=== PATIENT | male | born 1960 | race Caucasian/White ===

== ENCOUNTER 2018-12-25 19:37 | Emergency (ER) | payer OTHER ==
[2018-12-25] MEDS ORDERED: Ondansetron PF 4 MG/2 ML Vial ONE (20:22)
[2018-12-25] MEDS ORDERED: Morphine 4 MG/ML VIAL ONE (20:22)
[2018-12-25 20:35] LABS: #Eosinphils 0.1 thou/uL (0.0-0.7); #Lymphocytes 2.5 thou/uL (1.20-3.40); #Monocytes 1.1 thou/uL (0.11-0.59); #Neutrophils 9.8 thou/uL (1.40-6.50); %Basophils 0.2 % (0.0-1.0); %Eosinophils 1.1 % (0.0-10.0); %Lymphocytes 18.6 % (21.0-51.0); %Monocytes 7.8 % (0.0-10.0); %Neutrophils 72.4 % (42.0-75.0); Hemoglobin 14.7 g/dL (14.0-18.0); Mean Corpuscular HGB CONC 34.4 g/dL (32.0-36.0); Mean Corpuscular Hemoglobin 29.8 pg (27.0-31.0); Mean Corpuscular Volume 86.9 fL (78.0-98.0); Mean Platelet Volume 8.6 fL (7.4-10.4); Platelet Count 215 thou/uL (130-400); RBC Distribution Width 11.3 % (11.5-14.5); Red Blood Cell (RBC) Count 4.91 mill/uL (4.70-6.10); White Blood Cell (WBC) Count 13.5 thou/uL (4.8-10.8)
[2018-12-25 20:58] LABS: ALT (SGPT) 27 U/L (8-55); AST (SGOT) 21 U/L (5-34); Albumin 4.4 g/dL (3.5-5.0); Alkaline Phosphatase 49 U/L (40-150); Anion Gap 20 mmol/L (10-20); BUN (Urea Nitrogen) 14 mg/dL (8.4-25.7); Bilirubin, Total 0.6 mg/dL (0.2-1.2); Calc. Creatinine Clearance 0 mL/min (70-130); Calcium 9.8 mg/dL (7.8-10.44); Carbon Dioxide 21 mmol/L (22-29); Chloride 101 mmol/L (98-107); Estimated GFR-MDRD 69; Globulin 2.7 g/dL (2.4-3.5); Glucose 181 mg/dL (70-105); Protein, Total 7.1 g/dL (6.0-8.3); Sodium 138 mmol/L (136-145)
[2018-12-25 21:26] LABS: Lipase 8418 U/L (8-78)
--- NOTE | 2018-12-25 21:31 | CT ---
Contrast-enhanced images abdomen pelvis history: Abdominal pain Contrast-enhanced images of the abdomen pelvis obtained. The lung bases are unremarkable. No evidence of free intraperitoneal air seen. The liver, spleen, adrenal glands and kidneys are unremarkable. The pancreas demonstrates minimal fat stranding surrounding the pancreatic head possibly representing minimal changes of pancreatitis. The gallbladder is been surgically removed. No evidence of periaortic lymphadenopathy seen. No dilated loops of small bowel seen. The colon is unremarkable. No definite evidence of osseous lesion seen. IMPRESSION: Mild peripancreatic fat stranding.
== END 2018-12-25 23:42 | disposition home or self-care (01) ==
LOC: ERS 19:37
DX: K85.90 Acute pancreatitis without necrosis or infection, unspecified (principal); E11.9 Type 2 diabetes mellitus without complications; Z79.4 Long term (current) use of insulin
CPT/HCPCS: 36415; 36416; 74177; 80053; 83690; 85025; 96361; 96374; 96375; J2270; J2405

== ENCOUNTER 2019-01-16 00:27 | Inpatient (IN) | payer OTHER ==
[2019-01-16] MEDS ORDERED: Ondansetron PF 4 MG/2 ML Vial ONE (01:00)
[2019-01-16] MEDS ORDERED: Morphine 4 MG/ML VIAL ONE (01:00)
[2019-01-16 01:03] LABS: #Eosinphils 0.2 thou/uL (0.0-0.7); #Lymphocytes 2.9 thou/uL (1.20-3.40); #Monocytes 1.2 thou/uL (0.11-0.59); #Neutrophils 7.8 thou/uL (1.40-6.50); %Basophils 0.3 % (0.0-1.0); %Eosinophils 1.3 % (0.0-10.0); %Lymphocytes 24.2 % (21.0-51.0); %Monocytes 9.6 % (0.0-10.0); %Neutrophils 64.6 % (42.0-75.0); Hemoglobin 14.3 g/dL (14.0-18.0); Mean Corpuscular HGB CONC 35.6 g/dL (32.0-36.0); Mean Corpuscular Hemoglobin 30.8 pg (27.0-31.0); Mean Corpuscular Volume 86.6 fL (78.0-98.0); Mean Platelet Volume 8.6 fL (7.4-10.4); Platelet Count 220 thou/uL (130-400); RBC Distribution Width 11.7 % (11.5-14.5); Red Blood Cell (RBC) Count 4.65 mill/uL (4.70-6.10); White Blood Cell (WBC) Count 12.1 thou/uL (4.8-10.8)
[2019-01-16 01:28] LABS: ALT (SGPT) 45 U/L (8-55); AST (SGOT) 39 U/L (5-34); Albumin 4.3 g/dL (3.5-5.0); Alkaline Phosphatase 62 U/L (40-150); Anion Gap 14 mmol/L (10-20); BUN (Urea Nitrogen) 17 mg/dL (8.4-25.7); Bilirubin, Total 0.5 mg/dL (0.2-1.2); Calc. Creatinine Clearance 0 mL/min (70-130); Calcium 9.7 mg/dL (7.8-10.44); Carbon Dioxide 23 mmol/L (22-29); Chloride 103 mmol/L (98-107); Estimated GFR-MDRD 72; Globulin 2.7 g/dL (2.4-3.5); Glucose 198 mg/dL (70-105); Potassium 3.5 mmol/L (3.5-5.1); Sodium 136 mmol/L (136-145)
[2019-01-16 01:54] LABS: Lipase 12014 U/L (8-78)
[2019-01-16 02:43] LABS: Bilirubin Negative (Negative); Blood, Urine Negative (Negative); Clarity CLEAR (Clear); Glucose, Urine (Dipstick) 500 mg/dL (Negative); Leukocyte Negative (Negative); Nitrite Negative (Negative); Protein, Urine (Dipstick) Negative (Neg-Trace); Specific Gravity, Urine 1.028 (1.002-1.036)
[2019-01-16] MEDS ORDERED: Ondansetron ODT 4 MG TAB SL PRN (03:02)
[2019-01-16] MEDS ORDERED: Ondansetron PF 4 MG/2 ML Vial IVP PRN ×2 (03:02→08:56)
[2019-01-16] MEDS: Sodium Chloride 0.9% 1,000 ML IV SCH ×6 (03:41→22:30)
[2019-01-16 03:46] VITALS: BMI 24.2
[2019-01-16 05:03] LABS: Lactic Acid 0.8 mmol/L (0.5-2.2)
[2019-01-16] MEDS: Morphine 4 MG/ML VIAL SLOW IVP PRN ×2 (05:09→09:03)
[2019-01-16] MEDS ORDERED: Acetaminophen 325 MG TAB PO PRN (08:56)
[2019-01-16] MEDS ORDERED: Bisacodyl 5 MG TAB PO PRN (08:56)
[2019-01-16] MEDS ORDERED: Senokot S 8.6-50 MG TAB PO PRN (08:56)
[2019-01-16] MEDS ORDERED: Morphine 4 MG/ML VIAL SLOW IVP PRN (08:57)
[2019-01-16] MEDS: Famotidine/PF 20 mg/2ml Vial SLOW IVP SCH ×2 (09:39→20:49)
[2019-01-16] MEDS: Enoxaparin Sodium 40 MG/0.4 ML SYRINGE SC SCH (09:39)
--- NOTE | 2019-01-16 14:19 | ULT ---
GALLBLADDER ULTRASOUND: HISTORY:Recurrent pancreatitis FINDINGS: The liver demonstrates homogeneous echotexture without focal mass or intrahepatic biliary ductal dila tation. The patient is post cholecystectomy. The right kidney and visualized portions of the pancreas are normal. The common duct measures 5mm in diameter. The pancreatic duct measures 4 mm in diameter. No free fluid is seen in the Hutton's pouch. IMPRESSION: 1. Status post post cholecystectomy without abnormal biliary ductal dilatation 2. Mildly dilated pancreatic duct.
[2019-01-16] MEDS ORDERED: Dextrose 50% Abboject 50 ML SYRINGE SLOW IVP PRN (15:37)
[2019-01-16] MEDS ORDERED: HumaLOG 300 UNITS/3 ML VIAL SC PRN (15:37)
[2019-01-16] MEDS ORDERED: Dextrose 5% in Water 1,000 ML IV PRN (15:37)
[2019-01-16 16:12] LABS: Hemoglobin A1c 8.6 % (4.0-6.0)
[2019-01-16] MEDS ORDERED: Promethazine HCl 25 MG/ML VIAL IM/IV PRN (17:18)
--- NOTE | 2019-01-16 22:16 | HP ---
CHIEF COMPLAINT: Abdominal pain, nausea and vomiting. HISTORY OF PRESENT ILLNESS: The patient is a 58-year-old male with a history of recurrent pancreatitis, who presents to the hospital with complaints of right upper quadrant epigastric abdominal pain, nausea and vomiting. The patient stated that he came in to the hospital last month with similar symptoms. At that time, he did have a CT of abdomen and pelvis, which was consistent with mild peripancreatic fat stranding consistent with pancreatitis. However, patient was reluctant to stay since he started feeling well after some hydration and some pain medication and he was able to tolerate oral liquids, so he was discharged home. The patient stated that he is not a heavy drinker and he had his gallbladder removed. The patient stated that his first 2 episodes were back in 2008 I believe and in 2010. He did not have any episodes for 6 years and then had 2 [id number], which was the one last month and one yesterday. The patient stated he has had a total of five episodes of pancreatitis. He states that he has had an upper endoscopy and a colonoscopy a few years back or maybe longer, and he was told everything was okay. The patient is due for a colonoscopy recently. The patient denies taking any new medications except for the [id number] medications that he takes. The patient also states that his hemoglobin A1c is 9.1, and he was on insulin before; however, currently he is not on anything. He has been trying to manage his sugars with exercise, diet and cutting down on his sweets. However, the patient states that for the past few days he has been eating out quite a bit and has been eating some spicy foods and also foods that he normally would not eat. PAST MEDICAL HISTORY: As of the following: He has a history of recurrent pancreatitis, most likely diabetes. PAST SURGICAL HISTORY: He has had a colonoscopy, laparoscopic cholecystectomy in 2010. FAMILY HISTORY: Unremarkable. No history of cancer. Mother has diabetes, which is controlled through diet. 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 Denies any alcohol use. He does not smoke and he lives with his family and he is a full code. REVIEW OF SYSTEMS: All negative except for the ones mentioned above in the HPI. PHYSICAL EXAMINATION: VITAL SIGNS: As of the following; temperature 98.2, 67, 16, 97% on room air 138/80. GENERAL: He is awake, alert, oriented, and does not appear in distress. CV: S1, S2 present. No murmurs, rubs, or gallops. HEENT: Normocephalic, atraumatic. No lymphadenopathy noted. LUNG: Clear to auscultation. No rhonchi or wheezes noted. ABDOMEN: Soft, bowel sounds present x2. Pain upon palpation around epigastric area. NEUROVASCULAR: No focal deficits noted. SKIN: No cuts, lesions, bruises noted. LABORATORY RESULTS: As of the following; WBCs of 12.1, hemoglobin of 14.3, hematocrit of 40.3, his platelets were 220. Chemistry, sodium of 132, potassium of 3.5, glucose of 198, BUN of 17, creatinine 1.06. His lactic acid was 3.0. His lipase was 12,000. AST was mildly elevated at 39. Urine just indicated some glucose and some ketones. ASSESSMENT AND PLAN: The patient is a very pleasant 58-year-old male who presents to the hospital with abdominal pain. 1. Acute pancreatitis, unclear etiology. The patient has never had any trauma. He does not drink. He does not have a gallbladder. I will get a right upper quadrant ultrasound just to make sure there is no choledocholithiasis. Also, I am not sure, if he has ever had any workup in terms of his recurrent pancreatitis. According to him, he did have an EGD and colonoscopy. However, after that, no other workup. He is not on any prescription medications, he takes a lot of vitamins. His recent new vitamin was zinc, which I am not sure if it could possibly exacerbate pancreatitis. The patient does not feel that he is very much stressed. I will go ahead and order a right upper quadrant ultrasound. I will also consult GI since this is his 5th time getting pancreatitis. The patient states that he feels well and he wants to try clear liquids. I will start him on clear liquids and I have instructed him that, if he starts having abdominal pain or nausea to stop. I will continue the IV hydration and I will also check an ESR, CRP on this patient. 2. Diabetes. The patient states his hemoglobin A1c was 9 and his sugars have been elevated. I will check on hemoglobin A1c. I did instruct the patient that he needs to be on insulin, especially with a hemoglobin A1c of 9. He has a high risk for microvascular disease. The patient does understand and we will check a Accu-Cheks on this patient also. Job ID: [id number]
[2019-01-17] MEDS: Sodium Chloride 0.9% 1,000 ML IV SCH (05:15)
[2019-01-17 06:51] LABS: #Eosinphils 0.2 thou/uL (0.0-0.7); #Lymphocytes 1.6 thou/uL (1.20-3.40); #Monocytes 0.6 thou/uL (0.11-0.59); #Neutrophils 5.8 thou/uL (1.40-6.50); %Basophils 0.6 % (0.0-1.0); %Eosinophils 2.3 % (0.0-10.0); %Lymphocytes 19.7 % (21.0-51.0); %Neutrophils 70.5 % (42.0-75.0); Hemoglobin 12.3 g/dL (14.0-18.0); Mean Corpuscular HGB CONC 34.3 g/dL (32.0-36.0); Mean Corpuscular Hemoglobin 30.6 pg (27.0-31.0); Mean Corpuscular Volume 89.3 fL (78.0-98.0); Mean Platelet Volume 9.6 fL (7.4-10.4); Platelet Count 173 thou/uL (130-400); RBC Distribution Width 11.7 % (11.5-14.5); Red Blood Cell (RBC) Count 4.03 mill/uL (4.70-6.10); White Blood Cell (WBC) Count 8.3 thou/uL (4.8-10.8)
[2019-01-17 07:25] LABS: BUN (Urea Nitrogen) 7 mg/dL (8.4-25.7); Calc. Creatinine Clearance 103 mL/min (70-130); Calcium 8.1 mg/dL (7.8-10.44); Carbon Dioxide 27 mmol/L (22-29); Chloride 108 mmol/L (98-107); Estimated GFR-MDRD Greater than 90; Glucose 82 mg/dL (70-105); Sodium 139 mmol/L (136-145)
[2019-01-17 07:32] LABS: Anion Gap 8 mmol/L (10-20)
[2019-01-17] MEDS: Famotidine/PF 20 mg/2ml Vial SLOW IVP SCH (09:52)
[2019-01-17] MEDS: Enoxaparin Sodium 40 MG/0.4 ML SYRINGE SC SCH (09:52)
[2019-01-17 16:09] VITALS: BP 118/78; TEMP 97.8
== END 2019-01-17 16:55 | disposition home or self-care (01) | DRG 440 ==
LOC: ERS 00:27 → SURG B 02:57
PROVIDERS: ADMIT Internal Medicine; ATTEND Internal Medicine
DX: K85.90 Acute pancreatitis without necrosis or infection, unspecified (principal); E11.9 Type 2 diabetes mellitus without complications; Z90.49 Acquired absence of other specified parts of digestive tract; Z79.4 Long term (current) use of insulin
CPT/HCPCS: 36415; 36416; 76705; 80048; 80053; 81003; 83036; 83605; 83690; 84478; 85025; 85652; 86140; 87040; 96361; 96374; 96375; J1650; J2270; J2405; J2550; S0028

== ENCOUNTER 2019-02-08 16:04 | Inpatient (IN) | payer OTHER ==
[~2019-02-08 16:04] MED LIST: ISOVUE-370 76%-LOCM 1 ML ONE
[2019-02-08 16:27] LABS: #Basophils 0.1 thou/uL (0.0-0.2); #Eosinphils 0.2 thou/uL (0.0-0.7); #Lymphocytes 4.9 thou/uL (1.20-3.40); #Monocytes 0.8 thou/uL (0.11-0.59); #Neutrophils 5.1 thou/uL (1.40-6.50); %Basophils 0.6 % (0.0-1.0); %Eosinophils 1.4 % (0.0-10.0); %Lymphocytes 44.3 % (21.0-51.0); %Neutrophils 46.8 % (42.0-75.0); Hemoglobin 14.6 g/dL (14.0-18.0); Mean Corpuscular HGB CONC 33.8 g/dL (32.0-36.0); Mean Corpuscular Hemoglobin 29.6 pg (27.0-31.0); Mean Corpuscular Volume 87.6 fL (78.0-98.0); Mean Platelet Volume 8.4 fL (7.4-10.4); Platelet Count 256 thou/uL (130-400); RBC Distribution Width 11.9 % (11.5-14.5); Red Blood Cell (RBC) Count 4.94 mill/uL (4.70-6.10)
[2019-02-08] MEDS ORDERED: Morphine 4 MG/ML VIAL ONE ×2 (16:35→18:23)
[2019-02-08] MEDS ORDERED: Ondansetron PF 4 MG/2 ML Vial ONE (16:36)
[2019-02-08 16:51] LABS: ALT (SGPT) 31 U/L (8-55); AST (SGOT) 18 U/L (5-34); Albumin 4.3 g/dL (3.5-5.0); Alkaline Phosphatase 50 U/L (40-150); Anion Gap 18 mmol/L (10-20); BUN (Urea Nitrogen) 12 mg/dL (8.4-25.7); Bilirubin, Total 0.9 mg/dL (0.2-1.2); Calc. Creatinine Clearance 0 mL/min (70-130); Calcium 9.6 mg/dL (7.8-10.44); Carbon Dioxide 21 mmol/L (22-29); Chloride 102 mmol/L (98-107); Estimated GFR-MDRD 70; Globulin 2.6 g/dL (2.4-3.5); Glucose 171 mg/dL (70-105); Potassium 3.3 mmol/L (3.5-5.1); Protein, Total 6.9 g/dL (6.0-8.3); Sodium 138 mmol/L (136-145)
[2019-02-08 17:18] LABS: Lipase 15163 U/L (8-78)
[2019-02-08] MEDS ORDERED: Sodium Chloride 0.9% 100 ML ONE (17:33)
[2019-02-08] MEDS ORDERED: Piperacillin/Tazobactam 4.5 GM VIAL ONE (17:33)
--- NOTE | 2019-02-08 17:48 | CT ---
EXAM: CT ABDOMEN AND PELVIS HISTORY: Diffuse abdominal pain. Pancreatitis flareup. COMPARISON: None. Procedure: Multiple contiguous axial images were obtained and a CT of the abdomen and pelvis with IV contrast. C oronal reformats were performed. FINDINGS: Lower Chest: within normal limits. Vessels: Normal caliber aorta Heart: Unremarkable Abdomen: Portal vein:Patent Gallbladder: Surgically absent Liver: within normal limits. Pancreas: Slightly heterogeneous enhancement secondary to infection/inflammation (pancreatitis). Ther e is peripancreatic fluid and fat stranding secondary to an infectious/inflammatory process. No evidence of a peripancreatic abscess or pseudocyst. Spleen: within normal limits. Adrenals: within normal limits. Kidneys: Symmetric enhancement. No obstructive uropathy Peritoneum: There is extensive peripancreatic fluid and stranding. Bowel: Bowel wall thickening without obstruction involving the duodenum, adjacent to the inflamed coelho creas. Additional reactive inflammatory changes involve the splenic flexure. Mesentery and Retroperitoneum: No enlarged mesenteric or retroperitoneal lymph nodes. Abdominal Wall: within normal limits. Pelvis: Reproductive Organs: No pelvic masses. Pelvis: within normal limits. Bladder: within normal limits. Bones: within normal limits. IMPRESSION: 1. Pancreatitis. There are inflammatory changes in the peripancreatic region. No evidence of an absce ss or pseudocyst. 2. Reactive changes in the adjacent alimentary canal.
[2019-02-08] MEDS ORDERED: Promethazine HCl 25 MG/ML VIAL ONE ×2 (18:11→18:12)
[2019-02-08 19:06] LABS: Bilirubin Negative (Negative); Blood, Urine Negative (Negative); Clarity Clear (Clear); Glucose, Urine (Dipstick) Normal (Negative); Leukocyte Negative Leu/uL (Negative); Nitrite Negative (Negative); Protein, Urine (Dipstick) Negative (Neg-Trace); Urobilinogen Normal mg/dL (Less than 2)
[2019-02-08] MEDS ORDERED: Senokot S 8.6-50 MG TAB PO PRN (19:12)
[2019-02-08] MEDS ORDERED: Morphine 4 MG/ML VIAL SLOW IVP PRN (19:14)
[2019-02-08] MEDS ORDERED: Ondansetron PF 4 MG/2 ML Vial IVP PRN (19:15)
[2019-02-08 20:22] VITALS: BMI 23.8
[2019-02-08] MEDS: Morphine 4 MG/ML VIAL SLOW IVP PRN (20:32)
[2019-02-08] MEDS: Sodium Chloride 0.9% 1,000 ML IV SCH (20:45)
[2019-02-09] MEDS: Morphine 4 MG/ML VIAL SLOW IVP PRN ×4 (01:23→16:14)
--- NOTE | 2019-02-09 01:43 | HP ---
PCP: Angie Sherman MD CHIEF COMPLAINT: Abdominal pain, nausea, vomiting. HISTORY OF PRESENT ILLNESS: The patient reports abdominal pain, nausea, dry heaves since about 4 o'clock. Reports that he has had several episodes of pancreatitis, 2 in the last 3 months and felt like he might be getting recurrence of same. While in the emergency room, CT scan was performed which showed a slightly heterogeneous enhancement secondary to infection and inflammation, pancreatitis, peripancreatic fluid, and fat stranding secondary to infectious and inflammatory process and no evidence of abscess or pseudocyst. The patient also has lipase of 15,163. He is also found to be a little hypokalemic, potassium at 3.3, and white blood cell count at 11. Glucose was 171. The patient reports that he has been diagnosed with diabetes but is preferring to treat with diet and exercise. He reports that he has lost about 30 pounds in the last 6 months and felt like he had a better diet and was exercising 3 times a week and is unsure of what exactly triggered his pancreatitis at this point. The patient will be admitted to the medical floor for further management. PAST MEDICAL HISTORY: Recurrent pancreatitis and diabetes. PAST SURGICAL HISTORY: Colonoscopy over 10 years ago, laparoscopic cholecystectomy in 2010. FAMILY HISTORY: No history of cancer. Mother had diabetes, controlled through diet. 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 Denies any alcohol use. Does not smoke. Lives with his family. REVIEW OF SYSTEMS: Negative except as mentioned in the HPI. PHYSICAL EXAMINATION: VITAL SIGNS: Blood pressure 137/86, pulse is 78, respirations 20, PO2 sats are 100% on room air. GENERAL: The patient is nontoxic appearing, is in mild pain distress. He is alert and oriented to person, place, and time. HEENT: Head is atraumatic and normocephalic. Eyes, eyelids are normal to inspection. Pupils are equally round and reactive to light. ENT, mouth exam is normal. Mucous membranes are moist. NECK: Normal range of motion. Trachea is midline. RESPIRATORY/CHEST: Equal chest expansion. Breath sounds are clear. CARDIOVASCULAR: S1, S2. ABDOMEN: Tender, mostly epigastric, painful to epigastric region on palpation. No tenderness elsewhere. There is no rebound or guarding. BACK: Normal range of motion. No CVA tenderness. EXTREMITIES: Upper extremity; inspection is normal, range of motion is normal, radial pulses equal bilaterally. Lower extremity; inspection is normal, range of motion is normal, motor strength normal, pedal pulses equal bilaterally. NEUROLOGIC: The patient is oriented to person, place, and time. Speech is normal. SKIN: Warm, dry, normal in color. PSYCHIATRIC: Normal affect. IMAGING: EKG in the emergency room shows beats per minute 73 with PVCs, incomplete right bundle branch block, has a left anterior fascicular block, nonspecific EKG. ASSESSMENT AND PLAN: 1. Acute pancreatitis, this is a third episode. He has had gallbladder removed. Sugar was 178 today. I will keep him n.p.o. tonight. Advance to clear liquids in the morning, IV fluids, pain medications, and start him on a low Protonix. 2. Diabetes. The patient currently is trying to resolve his high sugars, he says he takes it every day and runs anywhere from 95 to 200. He exercises 3 times a week and watches his diet and has lost 30 pounds in the last 6 months. His A1c when he was here in 01/16/2019 was 8.6. The patient reports there was an improvement from the 9.1 that he previously had. We will add Accu-Cheks before breakfast and at bedtime sliding scale insulin for coverage. 3. Case discussed with Dr. Moncada, who agrees with the plan. 4. Deep venous thrombosis and gastrointestinal prophylaxis have been started. 5. Hospital course dependent on clinical findings. Job ID: [id number]
[2019-02-09] MEDS: Sodium Chloride 0.9% 1,000 ML IV SCH ×3 (05:26→21:20)
[2019-02-09 06:28] LABS: #Eosinphils 0.1 thou/uL (0.0-0.7); #Lymphocytes 1.4 thou/uL (1.20-3.40); #Monocytes 0.7 thou/uL (0.11-0.59); %Basophils 0.4 % (0.0-1.0); %Eosinophils 0.6 % (0.0-10.0); %Lymphocytes 13.5 % (21.0-51.0); %Monocytes 6.7 % (0.0-10.0); %Neutrophils 78.8 % (42.0-75.0); Hemoglobin 14.1 g/dL (14.0-18.0); Mean Corpuscular HGB CONC 33.6 g/dL (32.0-36.0); Mean Corpuscular Hemoglobin 30.1 pg (27.0-31.0); Mean Corpuscular Volume 89.5 fL (78.0-98.0); Mean Platelet Volume 8.8 fL (7.4-10.4); Platelet Count 205 thou/uL (130-400); RBC Distribution Width 12.1 % (11.5-14.5); Red Blood Cell (RBC) Count 4.69 mill/uL (4.70-6.10); White Blood Cell (WBC) Count 10.2 thou/uL (4.8-10.8)
[2019-02-09 06:54] LABS: ALT (SGPT) 23 U/L (8-55); AST (SGOT) 16 U/L (5-34); Albumin 3.6 g/dL (3.5-5.0); Alkaline Phosphatase 42 U/L (40-150); Anion Gap 11 mmol/L (10-20); BUN (Urea Nitrogen) 10 mg/dL (8.4-25.7); Bilirubin, Total 0.7 mg/dL (0.2-1.2); Calc. Creatinine Clearance 80 mL/min (70-130); Calcium 8.6 mg/dL (7.8-10.44); Carbon Dioxide 26 mmol/L (22-29); Chloride 106 mmol/L (98-107); Estimated GFR-MDRD 81; Globulin 2.2 g/dL (2.4-3.5); Glucose 183 mg/dL (70-105); Potassium 4.2 mmol/L (3.5-5.1); Protein, Total 5.8 g/dL (6.0-8.3); Sodium 139 mmol/L (136-145)
[2019-02-09] MEDS: Enoxaparin Sodium 40 MG/0.4 ML SYRINGE SC SCH (08:35)
[2019-02-09] MEDS ORDERED: Dextrose 50% Abboject 50 ML SYRINGE SLOW IVP PRN (08:59)
[2019-02-09] MEDS ORDERED: Dextrose 5% in Water 1,000 ML IV PRN (08:59)
[2019-02-09] MEDS ORDERED: Insulin Regular 300 UNITS/3 ML VIAL SC PRN ×2 (08:59)
[2019-02-09 09:18] LABS: Hemoglobin A1c 7.9 % (4.0-6.0)
[2019-02-09] MEDS ORDERED: HYDROcodone/Acetaminophen 5/325 mg Tablet PO PRN (10:39)
[2019-02-09] MEDS ORDERED: Morphine 2 MG/ML SYRINGE SLOW IVP PRN (11:00)
--- NOTE | 2019-02-09 11:01 | PRG ---
DATE OF SERVICE: 02/09/2019 SUBJECTIVE: A 58-year-old male with recurrent pancreatitis, presented to the emergency room with abdominal pain, nausea, and vomiting. His last vomiting was last night. His workup was consistent with acute pancreatitis with lipase of 15,163. He continues to have mild intermittent abdominal pain. He is somewhat nauseous, however denies any vomiting. No bowel movements in the hospital. No chest pain, palpitations, fever, or chills reported. REVIEW OF SYSTEMS: All other review of systems reviewed and were found negative. PHYSICAL EXAMINATION: VITAL SIGNS: Temperature 97.8, pulse rate of 73, respiration of 18, blood pressure 149/77, and O2 saturation of 97% on room air. GENERAL: A 58-year-old male, in no apparent distress at this time. HEENT: Head, atraumatic and normocephalic. Sclerae anicteric. Moist mucous membranes. No oral lesion. NECK: Supple. No JVD appreciated. No carotid bruit. LUNGS: Clear to auscultation bilaterally. No wheezing, rales, or rhonchi. HEART: S1 and S2 present. Regular rate and rhythm. No rubs or gallops. ABDOMEN: Soft. Mild generalized tenderness, mainly in the periumbilical region. No rebound or guarding. No costovertebral angle tenderness. EXTREMITIES: No edema or calf tenderness. NEUROLOGY: Grossly nonfocal. PSYCHIATRY: Alert, awake, and oriented x3. Normal affect. LABORATORY FINDINGS: WBC down to 10.2, hemoglobin 14.1, and potassium 4.2. Lipase of 3647. Hemoglobin A1c, which was done per the patient's request was 7.9. CT scan of the abdomen and pelvis by my review showed changes consistent with acute pancreatitis without any evidence of abscess or pseudocyst. There were reactive changes in the alimentary canal. IMPRESSION: 1. Acute pancreatitis of unclear etiology. 2. History of recurrent pancreatitis. 3. Diabetes mellitus type 2, diet controlled. 4. Erectile dysfunction, on p.r.n. tadalafil. 5. Hypokalemia, replaced. 6. Chronic kidney disease, stage 2. 7. History of laparoscopic cholecystectomy in 2010. 8. Nausea, vomiting, and abdominal pain secondary to #1. PLAN: The etiology of acute pancreatitis is unclear at this time. He was recently admitted with the same reason. We will increase IV fluids to 125. We will change his diet to n.p.o. from clear liquid diet. Continue Lovenox for DVT prophylaxis. His triglyceride was recently done, which was 159. He does not take any medicine that would cause pancreatitis. He denies any [id number] supplements. We will recheck lipase and electrolytes in a.m. We will consult Gastroenterology due to recurrent pancreatitis. He is scheduled to see Dr. Yeh as outpatient next month. Plan was discussed with the patient in detail. He stated understanding. Job ID: [id number]
--- NOTE | 2019-02-09 21:58 | CON ---
DATE OF CONSULTATION: 02/09/2019 REQUESTING PHYSICIAN: Dr. Ng. REASON FOR CONSULTATION: Recurrent pancreatitis. 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 He has a history of diabetes, which is currently diet controlled as well as some mild chronic kidney disease. He has had multiple episodes of acute pancreatitis through the years and has been seen by my GI colleague, Dr. Kip Yeh. His first episode was in September 2008. Following that episode, he had an endoscopic ultrasound with Dr. Kellogg in [place] and this evidently did show changes of chronic pancreatitis. He underwent cholecystectomy in 2010. He did have another attack in February 2013, but did well for the past 6 years since then. However, he has now had mild recurrent episodes on December 25 and January 17 of this year requiring ER visit and brief hospitalization. Then, yesterday, he again had a fairly acute onset of epigastric constant pain as well as nausea and nonbloody emesis, and presented here for further evaluation. He was found to have lipase elevation up to 15,163 with normal LFTs and labs otherwise essentially unremarkable. With IV fluid resuscitation and pain control, he has done pretty well today. The nausea has resolved, but epigastric pain persists and he is still requiring morphine. Lipase has fallen to 3647. He has remained hemodynamically stable. He is frustrated with having three recurrent attacks over the past several weeks. He does not drink any alcohol. Note, his triglycerides have always been fairly unremarkable except for his very initial episode in September 2008. He has no family history of pancreatitis. REVIEW OF SYSTEMS: Full review of systems including constitutional, head, eyes, ears, nose, throat, GI, , cardiovascular, respiratory, musculoskeletal, and neurologic systems is negative except as noted in the HPI. PAST MEDICAL HISTORY: 1. Diabetes type 2, diet controlled. 2. Erectile dysfunction. 3. Chronic kidney disease. 4. Cholecystectomy, 2010. 5. Recurrent acute pancreatitis with episodes in September 2008, August 2010, February 2013, and now December, January and February of 2019. 6. Chronic pancreatitis changes evidently seen on prior EUS, 2008. ALLERGIES: NO KNOWN DRUG ALLERGIES. MEDICATIONS: Outpatient medications; Tadalafil, daily multivitamin, Unisom. Inpatient medications; Lovenox 40 mg subcu daily, insulin sliding scale, morphine 4 mg IV q.4 hours p.r.n., Zofran p.r.n., sodium chloride 125 mL/h. FAMILY HISTORY: Negative for pancreatitis. SOCIAL HISTORY: He has not had any alcohol since 2012. He does not smoke. PHYSICAL EXAMINATION: VITAL SIGNS: Temperature 98.0, pulse 89, blood pressure 130/76, 96% oxygen saturation on room air. GENERAL: A 58-year-old man, sitting up in bed comfortably, in mild distress from abdominal pain. SKIN: No jaundice. No rashes were palpable. EYES: No scleral icterus. Extraocular movements intact. ENT: Mucous membranes moist. No oral lesions. LYMPH: No submandibular or supraclavicular lymphadenopathy. Thyroid nontender to palpation. HEART: Regular rate and rhythm. LUNGS: Clear to auscultation bilaterally. ABDOMEN: Bowel sounds are hypoactive, but present. The abdomen is soft. Tender to palpation in the epigastrium, but no guarding or rebound tenderness. No masses or organomegaly appreciated. EXTREMITIES: No peripheral edema. VESSELS: Radial pulses 2+ bilaterally. NEUROLOGIC: Cranial nerves 2 through 12 intact bilaterally. No focal deficits. LABORATORY STUDIES: Hemoglobin 14.1, WBC 10.2, platelets 205. Sodium 139, potassium 4.2, BUN 10, creatinine 0.95, glucose 189. Hemoglobin A1c is 7.9. Lipase initially 15,163, now down to 3647. LFTs all normal with total bilirubin 0.7, alkaline phosphatase 42, AST 16, ALT 23, albumin 3.6. Urinalysis is negative. IMAGING STUDIES: CT of the abdomen from yesterday demonstrated absent gallbladder and changes consistent with pancreatitis with peripancreatic fluid and stranding. No evidence of any abscess or pseudocyst. The spleen is normal. ASSESSMENT AND PLAN: Recurrent acute pancreatitis. With regard to this acute attack, lab and clinical parameters are favorable. CT does not show any complicated disease such as pseudocyst or fluid collection. Lipase is trending down and there has been no interval elevation in hematocrit, which gives a good prognosis for this current attack. Continue with supportive care as you are doing. We would continue the IV fluids and pain control as needed. I would keep him n.p.o. for the remainder of the day. If his pain requirements have lessened by tomorrow and he is feeling better and hungry, then could start slowly advancing his diet tomorrow morning. With regard to these recurrent attacks at this point, the cause is idiopathic. Note, the fairly extensive workup that he had in the past including genetic testing for familial pancreatitis, triglycerides only mildly elevated on multiple prior attacks. He is status post cholecystectomy and LFTs remained normal, so I doubt any biliary cause. He does not drink alcohol. He has not had any endoscopic ultrasound for the past 10 years, and especially with so many recent attacks, I think repeat referral for endoscopic ultrasound would be appropriate. We will go ahead and start working on endoscopic ultrasound referral. Thank you for the consultation. Please call me at anytime with questions or concerns. Job ID: [id number]
[2019-02-10] MEDS: Morphine 4 MG/ML VIAL SLOW IVP PRN (01:22)
[2019-02-10] MEDS ORDERED: Acetaminophen 325 MG TAB PO PRN (01:35)
[2019-02-10] MEDS: Acetaminophen 325 MG TAB PO PRN ×3 (01:47→15:43)
[2019-02-10] MEDS: Sodium Chloride 0.9% 1,000 ML IV SCH (05:59)
[2019-02-10 06:27] LABS: ALT (SGPT) 16 U/L (8-55); AST (SGOT) 11 U/L (5-34); Albumin 3.1 g/dL (3.5-5.0); Alkaline Phosphatase 35 U/L (40-150); Anion Gap 11 mmol/L (10-20); BUN (Urea Nitrogen) 8 mg/dL (8.4-25.7); Bilirubin, Total 1.4 mg/dL (0.2-1.2); Calc. Creatinine Clearance 100 mL/min (70-130); Calcium 7.8 mg/dL (7.8-10.44); Carbon Dioxide 25 mmol/L (22-29); Chloride 105 mmol/L (98-107); Estimated GFR-MDRD Greater than 90; Globulin 1.9 g/dL (2.4-3.5); Glucose 74 mg/dL (70-105); Magnesium 1.7 mg/dL (1.6-2.6); Phosphorus 2.9 mg/dL (2.3-4.7); Potassium 3.5 mmol/L (3.5-5.1); Sodium 137 mmol/L (136-145)
[2019-02-10 06:35] LABS: Lipase 1078 U/L (8-78)
[2019-02-10] MEDS ORDERED: Dextrose 50% Abboject 50 ML SYRINGE SLOW IVP SCH (07:45)
[2019-02-10 08:11] VITALS: BP 115/74
[2019-02-10] MEDS: Enoxaparin Sodium 40 MG/0.4 ML SYRINGE SC SCH (08:14)
[2019-02-10] MEDS ORDERED: Sodium Chloride 0.9% 1,000 ML IV SCH (11:11)
[2019-02-10 11:58] VITALS: TEMP 98.1
--- NOTE | 2019-02-10 13:11 | PRG ---
DATE OF SERVICE: SUBJECTIVE: Mr. Barcenas is feeling pretty well. He has not had any further morphine today. Abdominal discomfort is minimal. There is no nausea. He is tolerating clear liquids this morning. He feels a little bit bloated, but he is having good bowel sounds and passing gas. PHYSICAL EXAMINATION: VITAL SIGNS: Temperature 98.1, pulse 64, blood pressure 115/74, and 97% oxygen saturation on room air. GENERAL: No acute distress. HEART: Regular rate and rhythm. LUNGS: Clear to auscultation bilaterally. ABDOMEN: Soft. Minimal tenderness to palpation in the epigastrium, but no guarding or rebound tenderness. Mild distention. Tympanitic to percussion. Bowel sounds positive in all 4 quadrants. EXTREMITIES: No peripheral edema. LABORATORY STUDIES: Sodium 137, potassium 3.5, BUN 8, creatinine 0.76, total bilirubin 1.4, alkaline phosphatase 35, AST 11, ALT 16, amylase 844, lipase down to 1078. Hemoglobin 14.1, WBC 10.2, and platelets 205. ASSESSMENT AND PLAN: 1. Recurrent acute pancreatitis, resolving. 2. Abdominal pain, improved. 3. Nausea, resolved. I am pleased with Mr. Barcenas's clinical progress over the past day. He has not required any further narcotics today and is tolerating clear liquids. This morning, he is eager to go home if possible. I advised that we can advance to a low-fat solid food diet this evening at dinner. If he does well with this, then I think he could potentially be discharged to home even this evening. I did encourage him to stick with a low-carbohydrate, low-fat diet, and to let us know if symptoms escalate again. 4. Our office will be working on referral for endoscopic ultrasound within the next few weeks and will give him a call for those arrangements. We will also have him follow up with Dr. Yeh in the outpatient setting. Job ID: [id number]
--- NOTE | 2019-02-10 18:29 | DIS ---
DATE OF ADMISSION: 02/08/2019 DATE OF DISCHARGE: 02/10/2019 DISCHARGE DISPOSITION: Home. FOLLOWUP: 1. Follow up with primary care physician, Dr. Sherman in 1 week. 2. Follow up with Gastroenterology Clinic with Dr. Yeh. 3. An outpatient endoscopic ultrasound will be arranged by Dr. Yeh's office. The patient was seen and examined on the day of discharge. Denies any new complaints. No chest pain, shortness of breath, or palpitations. SIGNIFICANT LABS: Lipase on admission 15,163; at discharge 1078. Amylase on the day of discharge is 844. Total bilirubin 1.4 with AST 11, ALT 16, and alkaline phosphatase 35. WBC 10.2. Urinalysis was negative. IMAGING STUDIES: CT scan of the abdomen and pelvis on admission was consistent with acute pancreatitis without any evidence of abscess or pseudocyst. There were reactive changes in the adjacent alimentary canal. BRIEF HOSPITAL COURSE: The patient is a 58-year-old male with recurrent pancreatitis, presented to the emergency room with abdominal pain, nausea, and vomiting. Please refer to the history and physical for further details. The patient was admitted to the hospital with a diagnosis of acute pancreatitis. He was kept n.p.o. and was started on IV fluids. His pain was controlled with IV narcotics. Gradually, his symptoms improved. This afternoon, he tolerated clear liquid diet. He also tolerated low-fat diet this evening. The patient was evaluated by Gastroenterology Service, Dr. Luis León. Dr. León recommended endoscopic ultrasound as an outpatient. He was advised to stay with low-carbohydrate and low-fat diet. He has been cleared by Gastroenterology for discharge. FINAL DIAGNOSES: 1. Acute pancreatitis of unclear etiology. 2. History of recurrent pancreatitis. 3. Diabetes mellitus, type 2. 4. Hypokalemia, replaced. 5. Erectile dysfunction. 6. Chronic kidney disease, stage 2. 7. Nausea, vomiting, and abdominal pain, secondary to acute pancreatitis. 8. History of laparoscopic cholecystectomy in 2010. PLAN: 1. Plan was discussed with the patient in detail. He stated understanding. 2. Repeat lipase and LFTs after 1 week as recommended. 3. Primary care physician advised to follow. Job ID: [id number]
== END 2019-02-10 19:21 | disposition home or self-care (01) | DRG 440 ==
LOC: ERS 16:04 → ONC 18:26
PROVIDERS: ADMIT Internal Medicine; ATTEND Internal Medicine
DX: K85.90 Acute pancreatitis without necrosis or infection, unspecified (principal); E11.22 Type 2 diabetes mellitus with diabetic chronic kidney disease; N18.2 Chronic kidney disease, stage 2 (mild); E87.6 Hypokalemia; N52.9 Male erectile dysfunction, unspecified; Z90.49 Acquired absence of other specified parts of digestive tract
CPT/HCPCS: 36415; 36416; 74177; 80053; 81003; 82150; 83036; 83690; 83735; 84100; 85025; J1650; J1815; J2270; J2405; J2543; J2550; J3490; Q9966

== ENCOUNTER 2019-03-06 12:58 | Inpatient (IN) | payer OTHER ==
[2019-03-06] MEDS ORDERED: Ondansetron PF 4 MG/2 ML Vial ONE (13:26)
[2019-03-06 13:31] LABS: #Basophils 0.1 thou/uL (0.0-0.2); #Eosinphils 0.2 thou/uL (0.0-0.7); #Lymphocytes 3.7 thou/uL (1.20-3.40); #Monocytes 0.7 thou/uL (0.11-0.59); #Neutrophils 5.7 thou/uL (1.40-6.50); %Basophils 0.8 % (0.0-1.0); %Eosinophils 1.6 % (0.0-10.0); %Lymphocytes 35.8 % (21.0-51.0); %Monocytes 6.5 % (0.0-10.0); %Neutrophils 55.4 % (42.0-75.0); Hemoglobin 14.8 g/dL (14.0-18.0); Mean Corpuscular HGB CONC 34.2 g/dL (32.0-36.0); Mean Corpuscular Hemoglobin 29.7 pg (27.0-31.0); Mean Corpuscular Volume 86.7 fL (78.0-98.0); Mean Platelet Volume 8.6 fL (7.4-10.4); Platelet Count 254 thou/uL (130-400); RBC Distribution Width 12.3 % (11.5-14.5); Red Blood Cell (RBC) Count 4.98 mill/uL (4.70-6.10); White Blood Cell (WBC) Count 10.3 thou/uL (4.8-10.8)
[2019-03-06 13:54] LABS: ALT (SGPT) 30 U/L (8-55); AST (SGOT) 19 U/L (5-34); Albumin 4.5 g/dL (3.5-5.0); Alkaline Phosphatase 59 U/L (40-150); Anion Gap 15 mmol/L (10-20); BUN (Urea Nitrogen) 17 mg/dL (8.4-25.7); Bilirubin, Total 0.8 mg/dL (0.2-1.2); Calc. Creatinine Clearance 0 mL/min (70-130); Calcium 10.3 mg/dL (7.8-10.44); Carbon Dioxide 27 mmol/L (22-29); Chloride 101 mmol/L (98-107); Estimated GFR-MDRD 71; Globulin 2.9 g/dL (2.4-3.5); Glucose 214 mg/dL (70-105); Potassium 3.6 mmol/L (3.5-5.1); Protein, Total 7.4 g/dL (6.0-8.3); Sodium 139 mmol/L (136-145)
[2019-03-06] MEDS ORDERED: Fentanyl 100 MCG/2 ML VIAL ONE (14:00)
[2019-03-06 14:32] LABS: Lipase 8647 U/L (8-78)
[2019-03-06] MEDS ORDERED: Morphine 4 MG/ML VIAL ONE (15:56)
--- NOTE | 2019-03-06 16:09 | HP ---
PRIMARY CARE PHYSICIAN: Angie Sherman MD REASON FOR ADMISSION: Acute pancreatitis. HISTORY OF PRESENT ILLNESS: A 58-year-old male who has recurrent pancreatitis history. He had first episode of pancreatitis in 2008 and subsequently in 2010 and then third episode was in 2012. After that, he did not have any episode up until 2018 and since December, he had total of 4 episodes of pancreatitis. He required total 2 and this time third admission for pancreatitis in the recent past. The patient already had endoscopic ultrasound in [place], and he had result followup with Dr. Yeh early this morning. As per that report and result, Dr. Yeh decided that this patient will need an endoscopic sphincterotomy in [place], and the patient has made appointment in [place] in March 19, 2019. The patient also had routine followup with Dr. Yeh earlier today because he is due for his colonoscopy, and the patient made appointment for colonoscopy in April. After that visit, the patient was having acute onset of epigastric abdominal pain. The patient was knowing that he is hitting his pancreatitis as he had similar type of symptoms in the past. At this time, he caught very early, and he came to emergency room. At Dr. Yeh's office, he was also vomiting. Normally whenever he gets mild pancreatitis after vomiting, he feels better, and he watched over his diet, and he tried to manage by himself at home, but this time, the pain was persistent and that is why he decided to go to emergency room. In the emergency room, all other blood tests were normal except elevated lipase. The patient has history of diabetes, and he is trying to control with diet and exercise. In the past, he was on insulin, but lately, he was not on any insulin , and the patient also noticed that his blood sugar is getting high lately. PAST MEDICAL HISTORY: Diabetes type 2 and recurrent pancreatitis. PAST SURGICAL HISTORY: Biceps repair in 2014, cholecystectomy, and colonoscopy. PAST PSYCHIATRIC HISTORY: Reviewed and negative. SOCIAL HISTORY: The patient is , lives at home with . No history of tobacco, alcohol, or illicit drug abuse. FAMILY HISTORY: No family history of coronary artery disease, stroke, or cancer. Diabetes runs among several family members. REVIEW OF SYSTEMS: CONSTITUTIONAL: Negative for weight loss or gain, ability to conduct usual activities. SKIN: Negative for rash, itching. EYES: Negative for double vision, pain. ENT/MOUTH: Negative for nose bleeding, neck stiffness, pain, tenderness. CARDIOVASCULAR: Negative for palpitations, dyspnea on exertion, orthopnea. RESPIRATORY: Negative for shortness of breath, wheezing, cough, hemoptysis, fever or night sweats. GASTROINTESTINAL: Negative for poor appetite, abdominal pain, heartburn, nausea , vomiting, constipation, or diarrhea. GENITOURINARY: Negative for urgency, frequency, dysuria, nocturia. MUSCULOSKELETAL: Negative for pain, swelling. NEUROLOGIC/PSYCHIATRIC: Negative for anxiety, depression. ALLERGY/IMMUNOLOGIC: Negative for skin rash, bleeding tendency. Please see my HPI for pertinent positives and negatives. All other review of systems reviewed and negative except as mentioned in HPI. EMERGENCY ROOM COURSE: The patient has received fentanyl, Zofran, and IV fluid. ALLERGY: No known drug allergy. PHYSICAL EXAMINATION: VITAL SIGNS: Currently, blood pressure 155/85, pulse 88, respiratory rate 22, temperature 97.5, and saturation is 100% on room air. Weight 68 kg. GENERAL: The patient is currently alert and awake, no obvious acute distress. HEENT: Head; normocephalic, atraumatic. Eyes; pupils round, reactive to light. Extraocular muscle intact. ENT, oropharynx within normal limits. Moist mucous membranes. No oral lesion. No pharyngeal erythema. No exudate. NECK: Supple. No JVD. No thyromegaly. No carotid bruit. No jugular venous distention. LUNGS: Clear to auscultation without any rhonchi or rales. CARDIAC: S1, S2. Regular without any murmur. No gallop. No rub. ABDOMEN: Soft. Epigastric tenderness. No rebound. No organomegaly. No mass. No suprapubic tenderness. BACK: Unremarkable. No CVA tenderness. UPPER EXTREMITIES: Passive movement of all joints are normal. LOWER EXTREMITIES: No edema. Good distal pulsation. SKIN: No skin rash. HEMATOLOGICAL SYSTEM: No lymphadenopathy. NEUROLOGIC: Nonfocal examination. SIGNIFICANT LABORATORY DATA: CBC; WBC 10.3, hemoglobin 14.8, and platelets 254. BMP; sodium 139, potassium 3.6, chloride 101, carbon dioxide 27, BUN 17, creatinine 1.07, glucose 214, calcium 10.3. LFT; AST 19, ALT 30, alkaline phosphatase 59, albumin 4.5, and lipase 8647. ASSESSMENT: 1. Acute and recurrent pancreatitis. 2. Diabetes type 2, likely secondary to recurrent pancreatitis. PLAN: 1. Admission to medical floor. N.p.o. except medication. Pain control with morphine p.r.n. basis. Gastroenterology consultation. The patient already has planned for endoscopic sphincterotomy at [place]. We will repeat labs tomorrow , and we will advance diet accordingly. 2. Deep venous thrombosis prophylaxis with Lovenox 40 mg subcu daily. GI prophylaxis with Protonix 40 mg IV daily. CODE STATUS: The patient is full code. The patient's is surrogate decision maker. DISPOSITION PLAN: Based on clinical course, we are expecting the patient's stay in hospital 24 to 48 hours. Plan of care discussed with the patient and family member at bedside in the emergency room. Job ID: [id number] MTDD
[2019-03-06] MEDS ORDERED: Labetalol HCl 100 MG/20 ML VIAL SLOW IVP PRN (16:33)
[2019-03-06] MEDS ORDERED: Ondansetron PF 4 MG/2 ML Vial IVP PRN (16:33)
[2019-03-06] MEDS ORDERED: Acetaminophen 325 MG TAB PO PRN (16:33)
[2019-03-06] MEDS ORDERED: Sodium Chloride 0.65% Nasal 44 ML BOT EA NARE PRN (16:33)
[2019-03-06] MEDS ORDERED: Benzonatate 100 MG CAP PO PRN (16:33)
[2019-03-06] MEDS ORDERED: Dextrose 50% Abboject 50 ML SYRINGE SLOW IVP PRN (16:33)
[2019-03-06] MEDS ORDERED: Zolpidem Tartrate 5 MG TAB PO PRN (16:33)
[2019-03-06] MEDS ORDERED: HumaLOG 300 UNITS/3 ML VIAL SC PRN ×2 (16:33)
[2019-03-06] MEDS ORDERED: Diabetic Tussin 200 MG/10 ML UDCUP PO PRN (16:33)
[2019-03-06] MEDS ORDERED: Bisacodyl 10 MG SUPP PR PRN (16:33)
[2019-03-06] MEDS ORDERED: Calcium Carbonate 500 MG ChewTAB PO PRN (16:33)
[2019-03-06] MEDS ORDERED: hydrALAZINE 20 MG/ML VIAL SLOW IVP PRN (16:33)
[2019-03-06] MEDS ORDERED: Dextrose 5% in Water 1,000 ML IV PRN (16:33)
[2019-03-06] MEDS ORDERED: Ondansetron ODT 4 MG TAB PO PRN (16:33)
[2019-03-06] MEDS ORDERED: Sodium Chloride 0.9% 1,000 ML IV SCH (16:33)
[2019-03-06] MEDS ORDERED: Loratadine 10 MG TAB PO PRN (16:33)
[2019-03-06] MEDS ORDERED: Loperamide HCl 2 MG CAP PO PRN (16:33)
[2019-03-06] MEDS ORDERED: Senokot S 8.6-50 MG TAB PO PRN (16:33)
[2019-03-06] MEDS ORDERED: HYDROcodone/Acetaminophen 5/325 mg Tablet PO PRN (16:33)
[2019-03-06 16:59] VITALS: BMI 24.1
[2019-03-06] MEDS: Morphine 4 MG/ML VIAL SLOW IVP PRN ×2 (17:13→21:18)
[2019-03-06] MEDS: Sodium Chloride 0.9% 1,000 ML IV SCH (21:15)
--- NOTE | 2019-03-07 01:47 | CON ---
DATE OF CONSULTATION: 03/06/2019 REASON FOR CONSULTATION: Acute recurrent pancreatitis. CONSULTING PHYSICIAN: Racquel Obregon MD HISTORY OF PRESENT ILLNESS: The patient is a 58-year-old male with past medical history of diabetes and recurrent pancreatitis, presenting with increased midepigastric abdominal pain. Upon chart review, the patient has had recurrent bouts of pancreatitis, initially starting in 2008 with repeat episodes in 2010 and 2012. However, over the last 3-4 months, he has had approximately 3 to 4 episodes of pancreatitis with multiple hospitalizations during this time. He was evaluated in an outpatient setting by Dr. Yeh for which the patient was ultimately transferred to [place] for further evaluation by Dr. Borrego with endoscopic ultrasound performed recently. After the endoscopic ultrasound, he was in his usual state of health and was actually followed up by Dr. Yeh earlier today with no significant problems seen during the clinic visit this morning. However, shortly after the clinic visit, he states that he progressively had increased midepigastric abdominal pain starting at 11:00 a.m. and worsening over the next few hours, characterized as a "hunger pain", was nonradiating, constant, and ultimately reached a severity of 7/10 to 8/10. The pain was worse with increased physical activity/movement, better with pressure to the region and vomiting. With the onset of this pain, it was very similar to the prior bouts of pancreatitis he has had from earlier this year and given the fact that the patient waited to be seen in the hospital resulting in prolonged amounts of pain, it then prompted him to come to the ER early for further evaluation. While in the ER, he was noted to have increased midepigastric abdominal pain on physical exam, but also noted to have a significantly elevated lipase level consistent with acute recurrent pancreatitis. Along with his midepigastric abdominal pain, he does endorse nausea and vomiting with nonbloody emesis. However, he does deny fevers, chills, hematemesis, melena, hematochezia, diarrhea, constipation, dysphagia, or odynophagia. REVIEW OF SYSTEMS: A 10-category review of systems was obtained with all responses negative except for the pertinent positives as listed in HPI. PAST MEDICAL HISTORY: As per HPI. PAST SURGICAL HISTORY: Cholecystectomy, biceps repair in 2014, colonoscopy, endoscopic ultrasound. FAMILY HISTORY: Denies any GI malignancies. SOCIAL HISTORY: Denies any tobacco, alcohol, or illicit drug use. OUTPATIENT MEDICATIONS: Reviewed. ALLERGIES: NO KNOWN DRUG ALLERGIES. PHYSICAL EXAMINATION: VITAL SIGNS: Temperature 97.6, pulse 57, blood pressure 152/76, respiratory rate 20, saturating 100% on room air. GENERAL: The patient is sitting in a chair at bedside, in no acute distress. Alert and oriented x4. HEENT: Normocephalic, atraumatic. No scleral icterus noted. NECK: Supple. No JVD. CARDIOVASCULAR: Regular rate and rhythm with no discernible murmurs, gallops, or rubs. RESPIRATORY: Clear to auscultation bilaterally with no discernible wheezes or rales. ABDOMEN: Hypoactive bowel sounds. Soft, nondistended. Tenderness to palpation primarily in the midepigastric and right upper quadrant. EXTREMITIES: No cyanosis, clubbing, or edema. LABORATORY DATA: CBC with a white blood cell count of 10.3, hemoglobin 14.8, hematocrit 43.2, platelets 254. Chemistry with a sodium of 139, potassium 3.6, chloride 101, CO2 of 27, BUN 17, creatinine 1.07, glucose 214, AST 19, ALT 30, alkaline phosphatase 59, total bilirubin 0.8, lipase 8647. IMAGING DATA: No current GI imaging is available for review. ASSESSMENT AND PLAN: The patient is a 58-year-old male with past medical history of diabetes and recurrent pancreatitis, presenting with a bout of acute recurrent pancreatitis. Acute recurrent pancreatitis. The patient is presenting with sudden onset of midepigastric abdominal pain that is nonradiating, characterized as a "hunger pain" and very similar to the pain that he has felt in the past with prior bouts of pancreatitis. On admission, he was noted to have a significantly elevated lipase, also confirming this diagnosis. He has been evaluated as an outpatient for this particular condition, for the number of recurrent bouts of pancreatitis with a recent endoscopic ultrasound showing a cyst within the pancreas. Per Dr. Borrego's evaluation, it appears to be a possible intraductal papillary mucinous neoplasm with recommendations for a followup ERCP and possible sphincterotomy. EUS also showed mild changes of chronic pancreatitis with calcifications within the pancreas. At this time, his symptoms are consistent with recurrent acute pancreatitis and currently does not meet criteria for a complicated pancreatitis based on other labs. RECOMMENDATIONS: 1. We would continue n.p.o. status for now and advance diet as tolerated probably starting tomorrow morning. 2. We would increase IV fluid administration to 200 mL/h over the next 16 hours then decrease to 150 mL over the next 8 hours for fluid resuscitation associated with pancreatitis. 3. Pain control per primary team. 4. Given the mild nature of his acute pancreatitis, could potentially expedite his diet tomorrow with discharge either tomorrow or the day after. 5. We would consider a repeat CT of the abdomen and pelvis if not responding to the above therapies for complications associated with recurrent pancreatitis. We will continue to follow. Please call with any questions. Job ID: [id number]
[2019-03-07] MEDS: Morphine 4 MG/ML VIAL SLOW IVP PRN ×2 (03:45→08:54)
[2019-03-07] MEDS: Sodium Chloride 0.9% 1,000 ML IV SCH ×4 (03:50→18:37)
[2019-03-07 05:42] LABS: #Eosinphils 0.2 thou/uL (0.0-0.7); #Lymphocytes 2.2 thou/uL (1.20-3.40); #Monocytes 0.6 thou/uL (0.11-0.59); #Neutrophils 5.5 thou/uL (1.40-6.50); %Basophils 0.4 % (0.0-1.0); %Eosinophils 2.5 % (0.0-10.0); %Lymphocytes 25.7 % (21.0-51.0); %Monocytes 7.2 % (0.0-10.0); %Neutrophils 64.2 % (42.0-75.0); Hemoglobin 12.4 g/dL (14.0-18.0); Mean Corpuscular HGB CONC 34.2 g/dL (32.0-36.0); Mean Corpuscular Hemoglobin 30.4 pg (27.0-31.0); Mean Corpuscular Volume 88.9 fL (78.0-98.0); Mean Platelet Volume 8.8 fL (7.4-10.4); Platelet Count 194 thou/uL (130-400); RBC Distribution Width 12.1 % (11.5-14.5); Red Blood Cell (RBC) Count 4.09 mill/uL (4.70-6.10); White Blood Cell (WBC) Count 8.5 thou/uL (4.8-10.8)
[2019-03-07 05:55] LABS: Hemoglobin A1c 7.4 % (4.0-6.0)
[2019-03-07 06:21] LABS: ALT (SGPT) 24 U/L (8-55); AST (SGOT) 19 U/L (5-34); Albumin 3.5 g/dL (3.5-5.0); Alkaline Phosphatase 41 U/L (40-150); Anion Gap 9 mmol/L (10-20); BUN (Urea Nitrogen) 12 mg/dL (8.4-25.7); CRP (Inflammatory) 0.87 mg/dL (= or < 0.5); Calc. Creatinine Clearance 95 mL/min (70-130); Calcium 8.4 mg/dL (7.8-10.44); Carbon Dioxide 28 mmol/L (22-29); Cardiac Risk 3.2 (Less than 4.5); Chloride 108 mmol/L (98-107); Cholesterol 89 mg/dl (< 200 Desired); Estimated GFR-MDRD Greater than 90; Globulin 2.1 g/dL (2.4-3.5); Glucose 113 mg/dL (70-105); HDL Cholesterol 28 mg/dL (>60 Neg Risk); LDL Cholesterol, Calculated 40 mg/dL; Magnesium 1.8 mg/dL (1.6-2.6); Phosphorus 3.6 mg/dL (2.3-4.7); Potassium 4.4 mmol/L (3.5-5.1); Protein, Total 5.6 g/dL (6.0-8.3); Sodium 141 mmol/L (136-145); Triglycerides 107 mg/dL (Less than 150)
[2019-03-07 06:23] LABS: Lipase 3082 U/L (8-78)
[2019-03-07] MEDS: Pantoprazole 40 MG VIAL IVP SCH (08:57)
[2019-03-07] MEDS: Enoxaparin Sodium 40 MG/0.4 ML SYRINGE SC SCH (09:02)
--- NOTE | 2019-03-07 13:05 | PDOC.HOSPP ---
- Subjective Subjective: pt has less epigastric pain, no nausea or vomiting - Objective Vital Signs & Weight: Vital Signs (12 hours) Temp Pulse Resp BP Pulse Ox 03/07/19 12:00 97.6 F 56 L 18 137/75 99 03/07/19 08:00 97.9 F 69 16 112/73 97 03/07/19 04:00 97.8 F 86 16 120/78 98 Weight Weight 149 lb 7.574 oz I&O: 03/06/19 03/07/19 03/08/19 06:59 06:59 06:59 Intake Total 2400 Balance 2400 Result Diagrams: 03/07/19 05:13 03/07/19 05:13 Additional Labs: Accuchecks 03/07/19 03/07/19 03/06/19 11:25 05:14 21:05 POC Glucose 99 109 141 H 03/06/19 16:56 POC Glucose 198 H ROS - Review of Systems All systems: All other ROS were reviewed and found negative. Constitutional: denies: fever, chills, sweats, weakness, malaise, other Eyes: denies: pain, vision change, conjunctivae inflammation, eyelid inflammation, redness, other ENT: denies: ear pain, ear discharge, nose pain, nose discharge, nose congestion , mouth pain, mouth swelling, throat pain, throat swelling, other Respiratory: denies: cough, dry, shortness of breath, hemoptysis, SOB with excertion, pleuritic pain, sputum, wheezing, other Cardiovascular: denies: chest pain, palpitations, orthopnea, paroxysmal noc. dyspnea, edema, light headedness, other Gastrointestinal: reports: abdominal pain. denies: nausea, vomitting, diarrhea , constipation, melena, hematochezia, other Genitourinary: denies: dysuria, frequency, incontinence, hematuria, retention, other Musculoskeletal: denies: neck pain, shoulder pain, arm pain, back pain, hand pain, leg pain, foot pain, other Skin: denies: rash, lesions, ángel, bruising, other - Medication Medications: Active Medications Generic Name Dose Route Start Last Admin Trade Name Freq PRN Reason Stop Dose Admin Enoxaparin Sodium 40 mg 03/07/19 09:00 03/07/19 09:02 Lovenox SC Not Given 0900 IRVING Sodium Chloride 1,000 mls @ 125 mls/hr 03/07/19 09:15 03/07/19 09:41 Normal Saline 0.9% IV Not Given .Q8H [facility] Insulin Human Lispro 0 units 03/06/19 16:33 03/06/19 17:14 Humalog SC 2 units .MODERATE SLIDING SC PRN Administration Moderate Correctional Scale Morphine Sulfate 4 mg 03/06/19 16:33 03/07/19 08:54 Morphine SLOW IVP 4 mg Q4H PRN Administration Pain Pantoprazole Sodium 40 mg 03/07/19 09:00 03/07/19 08:57 Protonix IVP 40 mg DAILY IRVING Administration - Exam NAD, awake alert Eye: PERRL, anicteric sclera ENT: normocephalic atraumatic, no oropharyngeal lesions Neck: supple, symmetric, no JVD Heart: RRR, no murmur, no gallops, no rubs Respiratory: CTAB, no wheezes, no rales, no ronchi Gastrointestinal: soft, non-distended, normal bowel sounds (mild epigastric tenderness), tender to palpation (epigastric) Extremities: no cyanosis, no clubbing, no edema Skin: normal turgor, no lesions, no rashes Neurological: CN's grossly intact, normal sensation to touch, no focal deficits Musculoskeletal: normal tone, normal strength Psychiatric: normal affect, normal behavior, A&O x 3 Hosp A/P (1) Diabetes type 2, controlled Code(s): E11.9 - TYPE 2 DIABETES MELLITUS WITHOUT COMPLICATIONS Status: Chronic (2) Acute pancreatitis Code(s): K85.90 - ACUTE PANCREATITIS WITHOUT NECROSIS OR INFECTION, UNSP Status: Acute - Plan old records reviewed/req lipase improving clinically improving GI following advance diet as tolerated, will defer to GI medication reviewed as below symptomatic treatment
--- NOTE | 2019-03-07 16:12 | PRG ---
DATE OF SERVICE: 03/07/2019 REASON FOR CONSULTATION: Acute recurrent pancreatitis. SUBJECTIVE: The patient did have a bit of a restless night last night, being unable to sleep with the increased noise associated with hospital, but otherwise states that his abdominal pain is improved and has minimal abdominal pain at this time. We did start him on clear liquids this morning, but unfortunately he vomited the clear liquids shortly after ingestion. It is unclear if this was associated with increased morphine administration prior to eating breakfast or whether or not this was a reaction to the food, but otherwise the patient is doing well. Currently, he denies any nausea, vomiting, fevers, chills, hematemesis, melena, or hematochezia. OBJECTIVE: VITAL SIGNS: Temperature 97.6, pulse 56, blood pressure 137/75, respiratory rate 18, saturating 99% on room air. GENERAL: The patient is lying in bed, in no acute distress. Alert and oriented x4. CARDIOVASCULAR: Regular rate and rhythm. RESPIRATORY: Clear to auscultation bilaterally. ABDOMEN: Normoactive bowel sounds. Soft, nondistended. Tenderness to palpation in the midepigastric and left upper quadrant. EXTREMITIES: No cyanosis, clubbing, or edema. LABORATORY DATA: CBC with a white blood cell count of 8.5, hemoglobin 12.4, hematocrit 36.4, platelets 194. Chemistry with a sodium of 141, potassium 4.4, chloride 108, CO2 of 28, BUN 12, creatinine 0.81, glucose 113, triglycerides 107. IMAGING DATA: No current GI imaging is available for review. ASSESSMENT AND PLAN: The patient is a 58-year-old male with past medical history of diabetes and recurrent pancreatitis, presenting with a bout of acute recurrent pancreatitis. 1. Acute recurrent pancreatitis. a. The patient is presenting with acute onset of midepigastric abdominal pain consistent with prior bouts of pancreatitis, currently doing well with more conservative management at this time with his current clinical picture consistent with an uncomplicated acute pancreatitis. RECOMMENDATIONS: 1. We would advance diet to full liquid diet in the hopes that he would tolerate it. If he has increased abdominal pain, we would then decrease back to a clear liquid diet. 2. We would continue fluid resuscitation at 150 mL/h for the next 4 hours, then decrease to 100 mL/h. 3. Pain control per Primary Team. 4. We would consider repeat CT scan of the abdomen and pelvis if not responding to above therapies. 5. We would continue to advance diet as tolerated with possible discharge tomorrow. We will continue to follow. Please call with any questions. Job ID: [id number]
[2019-03-07 20:39] VITALS: TEMP 98.3
[2019-03-08] MEDS: Sodium Chloride 0.9% 1,000 ML IV SCH ×2 (00:28→08:10)
[2019-03-08] MEDS: Enoxaparin Sodium 40 MG/0.4 ML SYRINGE SC SCH (06:41)
[2019-03-08 07:23] VITALS: BP 137/75
[2019-03-08] MEDS: Pantoprazole 40 MG VIAL IVP SCH (08:10)
--- NOTE | 2019-03-08 14:08 | DIS ---
DATE OF ADMISSION: 03/06/2019 DATE OF DISCHARGE: 03/08/2019 PRIMARY CARE PHYSICIAN: Dr. Angie Sherman. DISCHARGE DISPOSITION: Home. PRIMARY DISCHARGE DIAGNOSIS: Acute pancreatitis. SECONDARY DISCHARGE DIAGNOSIS: Diabetes type 2, diet controlled. PRIMARY PROCEDURE/OPERATION: None. RADIOLOGICAL INVESTIGATION: None. SIGNIFICANT LABORATORY DATA: WBC 8.5, hemoglobin 12.4, and platelets 194. Lipase 310, sodium 141. Hemoglobin A1c 7.4. LFT normal. DISCHARGE MEDICATIONS: None. CONTRAINDICATION: None. CODE STATUS: Full code. INPATIENT PRACTICE MANAGERS: Dr. Srinivas Rivers. TEST RESULTS PENDING ON DISCHARGE: None. ALLERGIES: NO KNOWN DRUG ALLERGIES. DISCHARGE PLAN: Posthospital, the patient will follow up with Dr. Yeh as instructed. HOSPITAL COURSE: A 58-year-old male, who has recurrent pancreatitis, and he was admitted for episode of pancreatitis. He was having epigastric abdominal pain, which was radiating to back. He has classic presentation of acute pancreatitis. This patient had endoscopic ultrasound done, and based on that, Dr. Yeh recommended him to go to [place] for a sphincterotomy to be performed at higher level of care. The patient also scheduled for outpatient colonoscopy for his routine maintenance colonoscopy. During this admission, we treated him in standard fashion for acute pancreatitis with n.p.o., IV fluid, and pain controlled. His symptoms significantly improved, and we started liquid diet and full liquid and solid food, and he is tolerating very well. His lipase is also trending down, and his pain is completely subsided. I have seen and examined the patient at bedside today. PHYSICAL EXAMINATION: VITAL SIGNS: Currently, temperature 98.3, pulse 71, respiratory rate 16, saturation 94% on room air, blood pressure 137/75, and weight 149 pounds. GENERAL: The patient is currently alert, awake, in no obvious acute distress. HEENT: Head, normocephalic and atraumatic. LUNGS: Clear to auscultation without any rhonchi or rales. CARDIAC: S1 and S2, regular without any murmur. ABDOMEN: Soft and benign. EXTREMITIES: No edema. NEUROLOGIC: Nonfocal examination. Overall, the patient is medically stable for discharge. Job ID: [id number]
== END 2019-03-08 13:58 | disposition home or self-care (01) | DRG 440 ==
LOC: ERS 12:58 → T4-A 14:46
PROVIDERS: ADMIT Internal Medicine; ATTEND Internal Medicine
DX: K85.90 Acute pancreatitis without necrosis or infection, unspecified (principal); E11.9 Type 2 diabetes mellitus without complications; K86.1 Other chronic pancreatitis; Z90.49 Acquired absence of other specified parts of digestive tract; Z87.19 Personal history of other diseases of the digestive system
CPT/HCPCS: 36415; 36416; 80053; 80061; 83036; 83690; 83735; 84100; 85025; 86140; 96361; 96374; 96375; C9113; J1650; J2270; J2405; J3010

== ENCOUNTER 2019-04-01 10:02 | Outpatient (CLI) | payer OTHER ==
--- NOTE | 2019-04-01 13:12 | RAD ---
KUB: HISTORY: Abdominal pain, intermittent pancreatitis. FINDINGS: The bowel gas pattern is nonobstructive. There is a thin catheter which may represent a stent which could possibly be within the common duct region. Clinical correlation is recommended. Surgical clip in the right upper quadrant is compatible with a cholecystectomy. IMPRESSION: 1. Nonobstructed bowel gas pattern. 2. Thin caliber tube which may represent a stent within the right upper quadrant of the abdomen. Th ere are postop cholecystectomy changes seen. POS: TPC
== END 2019-04-01 10:03 | disposition home or self-care (01) ==
LOC: BICRAD 10:02
PROVIDERS: ATTEND Internal Medicine Gastroenterology
DX: K85.90 Acute pancreatitis without necrosis or infection, unspecified (principal); Z90.49 Acquired absence of other specified parts of digestive tract
CPT/HCPCS: 74018

== ENCOUNTER 2019-04-21 12:25 | Outpatient (CLI) | payer OTHER ==
--- NOTE | 2019-04-21 13:35 | RAD ---
SUPINE ABDOMEN: Date: 04/21/19 INDICATION: Pancreatitis. Assess for stent passage. COMPARISON: 04/01/19. Prior exam revealed a radiopaque catheter or stent in the right upper quadrant. FINDINGS/IMPRESSION: On today's exam, post cholecystectomy clips are noted. There is stool and gas throughout the colon. S mall bowel gas pattern unremarkable. The radiopaque stent noted overlying the right upper quadrant on the prior exam is not identified on the current study. POS: OFF
== END 2019-04-21 12:26 | disposition home or self-care (01) ==
LOC: BICRAD 12:25
PROVIDERS: ATTEND Internal Medicine
DX: K86.1 Other chronic pancreatitis (principal); R19.5 Other fecal abnormalities; Z90.49 Acquired absence of other specified parts of digestive tract
CPT/HCPCS: 74018

== ENCOUNTER 2022-06-18 19:53 | Inpatient (IN) | payer BC, OTHER ==
[~2022-06-18 19:53] MED LIST changes: -ISOVUE-370 76%-LOCM 1 ML ONE; +Iopamidol 370 76% 100 ML VIAL ONE
[2022-06-18 20:31] LABS: #Eosinphils 0.3 thou/uL (0.0-0.7); #Lymphocytes 2.7 thou/uL (1.20-3.40); #Monocytes 0.7 thou/uL (0.11-0.59); #Neutrophils 6.4 thou/uL (1.40-6.50); %Basophils 0.4 % (0.0-1.0); %Eosinophils 2.7 % (0.0-10.0); %Lymphocytes 26.4 % (21.0-51.0); %Monocytes 7.2 % (0.0-10.0); %Neutrophils 63.2 % (42.0-75.0); Hemoglobin 15.3 g/dL (14.0-18.0); Mean Corpuscular Hemoglobin 30.7 pg (27.0-31.0); Mean Corpuscular Volume 87.8 fl (78.0-98.0); Mean Platelet Volume 8.4 fL (7.4-10.4); Platelet Count 255 10x3/uL (130-400); RBC Distribution Width 11.7 % (11.5-14.5); Red Blood Cell (RBC) Count 4.99 mill/uL (4.70-6.10); White Blood Cell (WBC) Count 10.2 10x3/uL (4.8-10.8)
[2022-06-18 20:48] LABS: ALT (SGPT) 18 U/L (8-55); AST (SGOT) 13 U/L (5-34); Albumin 4.2 g/dL (3.4-4.8); Alkaline Phosphatase 63 U/L (40-110); Anion Gap 16 mmol/L (10-20); BUN (Urea Nitrogen) 15 mg/dL (8.4-25.7); Calc. Creatinine Clearance 0 mL/min (70-130); Calcium 9.2 mg/dL (7.8-10.44); Carbon Dioxide 23 mmol/L (23-31); Chloride 102 mmol/L (98-107); Estimated GFR 89; Globulin 3.2 g/dL (2.4-3.5); Glucose 207 mg/dL (80-115); Potassium 4.6 mmol/L (3.5-5.1); Protein, Total 7.4 g/dL (5.8-8.1); Sodium 136 mmol/L (136-145)
[2022-06-18] MEDS ORDERED: Morphine 4 MG/ML VIAL ONE (20:58)
[2022-06-18] MEDS ORDERED: Ondansetron PF 4 MG/2 ML Vial ONE (20:58)
[2022-06-18 21:01] LABS: Lipase 4759 U/L (8-78)
[2022-06-18] MEDS ORDERED: Metoclopramide HCl 10 MG/2 ML VIAL ONE (22:11)
[2022-06-18] MEDS ORDERED: diphenhydrAMINE 50 MG/ML VIAL ONE (22:11)
[2022-06-18] MEDS ORDERED: Ondansetron PF 4 MG/2 ML Vial IVP PRN (23:45)
[2022-06-18] MEDS ORDERED: Sodium Chloride 0.9% 1,000 ML IV SCH (23:45)
[2022-06-18] MEDS ORDERED: Ondansetron ODT 4 MG TAB SL PRN (23:45)
[2022-06-18] MEDS ORDERED: Morphine 4 MG/ML VIAL SLOW IVP PRN (23:49)
[2022-06-19 00:47] VITALS: BMI 24.0
[2022-06-19] MEDS ORDERED: Sodium Chloride 0.9% 1,000 ML IV SCH (02:18)
[2022-06-19] MEDS: Sodium Chloride 0.9% 1,000 ML IV SCH ×6 (02:33→21:57)
[2022-06-19] MEDS ORDERED: Dextrose 5% in Water 1,000 ML IV PRN (02:34)
[2022-06-19] MEDS ORDERED: Dextrose 50% Abboject 50 ML SYRINGE SLOW IVP PRN (02:34)
[2022-06-19] MEDS ORDERED: HumaLOG 300 UNITS/3 ML VIAL SC PRN ×2 (02:34)
[2022-06-19 03:24] LABS: #Eosinphils 0.3 thou/uL (0.0-0.7); #Lymphocytes 2.8 thou/uL (1.20-3.40); #Monocytes 0.7 thou/uL (0.11-0.59); #Neutrophils 5.4 thou/uL (1.40-6.50); %Basophils 0.3 % (0.0-1.0); %Eosinophils 3.6 % (0.0-10.0); %Lymphocytes 29.9 % (21.0-51.0); %Monocytes 7.5 % (0.0-10.0); %Neutrophils 58.8 % (42.0-75.0); Mean Corpuscular HGB CONC 33.8 g/dL (32.0-36.0); Mean Corpuscular Hemoglobin 30.4 pg (27.0-31.0); Mean Corpuscular Volume 89.9 fl (78.0-98.0); Mean Platelet Volume 8.3 fL (7.4-10.4); Platelet Count 207 10x3/uL (130-400); RBC Distribution Width 11.7 % (11.5-14.5); Red Blood Cell (RBC) Count 4.27 mill/uL (4.70-6.10); White Blood Cell (WBC) Count 9.2 10x3/uL (4.8-10.8)
[2022-06-19 03:41] LABS: ALT (SGPT) 14 U/L (8-55); AST (SGOT) 12 U/L (5-34); Albumin 3.4 g/dL (3.4-4.8); Alkaline Phosphatase 48 U/L (40-110); Anion Gap 12 mmol/L (10-20); BUN (Urea Nitrogen) 12 mg/dL (8.4-25.7); Bilirubin, Total 0.7 mg/dL (0.2-1.2); Calc. Creatinine Clearance 101 mL/min (70-130); Calcium 7.9 mg/dL (7.8-10.44); Carbon Dioxide 19 mmol/L (23-31); Cardiac Risk 3.9 (Less than 4.5); Chloride 109 mmol/L (98-107); Cholesterol 97 mg/dl (< 200 Desired); Estimated GFR 104; Globulin 2.4 g/dL (2.4-3.5); Glucose 158 mg/dL (80-115); HDL Cholesterol 25 mg/dL (>60 Neg Risk); LDL Cholesterol, Calculated 48 mg/dL; Potassium 3.8 mmol/L (3.5-5.1); Protein, Total 5.8 g/dL (5.8-8.1); Sodium 136 mmol/L (136-145); Triglycerides 122 mg/dL (Less than 150)
[2022-06-19 04:01] LABS: Hemoglobin A1c 10.5 % (4.0-6.0)
[2022-06-19] MEDS: Fioricet 325/50/40 mg Tablet PO PRN ×2 (04:14→11:00)
[2022-06-19] MEDS: Enoxaparin Sodium 40 MG/0.4 ML SYRINGE SC SCH (09:50)
[2022-06-19] MEDS: Acetaminophen 325 MG TAB PO PRN ×2 (13:20→17:20)
[2022-06-19] MEDS: Morphine 4 MG/ML VIAL SLOW IVP PRN (21:05)
[2022-06-20] MEDS: Sodium Chloride 0.9% 1,000 ML IV SCH ×2 (00:43→06:47)
[2022-06-20] MEDS: Morphine 4 MG/ML VIAL SLOW IVP PRN (01:00)
[2022-06-20] MEDS: Acetaminophen 325 MG TAB PO PRN (05:31)
[2022-06-20 06:45] LABS: #Eosinphils 0.4 thou/uL (0.0-0.7); #Lymphocytes 2.4 thou/uL (1.20-3.40); #Monocytes 0.5 thou/uL (0.11-0.59); %Basophils 0.2 % (0.0-1.0); %Eosinophils 5.3 % (0.0-10.0); %Lymphocytes 32.6 % (21.0-51.0); %Monocytes 7.4 % (0.0-10.0); %Neutrophils 54.5 % (42.0-75.0); Hemoglobin 12.2 g/dL (14.0-18.0); Mean Corpuscular HGB CONC 34.4 g/dL (32.0-36.0); Mean Corpuscular Hemoglobin 30.4 pg (27.0-31.0); Mean Corpuscular Volume 88.5 fl (78.0-98.0); Mean Platelet Volume 8.4 fL (7.4-10.4); Platelet Count 194 10x3/uL (130-400); RBC Distribution Width 11.7 % (11.5-14.5); Red Blood Cell (RBC) Count 4.01 mill/uL (4.70-6.10); White Blood Cell (WBC) Count 7.3 10x3/uL (4.8-10.8)
[2022-06-20 08:10] LABS: ALT (SGPT) 14 U/L (8-55); AST (SGOT) 14 U/L (5-34); Albumin 3.5 g/dL (3.4-4.8); Alkaline Phosphatase 49 U/L (40-110); Anion Gap 9 mmol/L (10-20); BUN (Urea Nitrogen) 5 mg/dL (8.4-25.7); Bilirubin, Total 0.5 mg/dL (0.2-1.2); Calc. Creatinine Clearance 97 mL/min (70-130); Calcium 8.5 mg/dL (7.8-10.44); Carbon Dioxide 25 mmol/L (23-31); Chloride 108 mmol/L (98-107); Estimated GFR 102; Globulin 2.4 g/dL (2.4-3.5); Glucose 140 mg/dL (80-115); Potassium 3.9 mmol/L (3.5-5.1); Protein, Total 5.9 g/dL (5.8-8.1); Sodium 138 mmol/L (136-145)
[2022-06-20] MEDS: Enoxaparin Sodium 40 MG/0.4 ML SYRINGE SC SCH (08:12)
[2022-06-20] MEDS ORDERED: Sodium Chloride 0.9% 1,000 ML IV SCH (09:00)
[2022-06-20 14:49] VITALS: BP 139/85; TEMP 97.8
== END 2022-06-20 14:46 | disposition home or self-care (01) | DRG 440 ==
LOC: ERS 19:53 → T4-A 23:45
PROVIDERS: ADMIT Internal Medicine; ATTEND Internal Medicine
DX: K85.90 Acute pancreatitis without necrosis or infection, unspecified (principal); Z20.822 Contact with and (suspected) exposure to COVID-19; E11.9 Type 2 diabetes mellitus without complications; K86.1 Other chronic pancreatitis; G44.209 Tension-type headache, unspecified, not intractable; F17.210 Nicotine dependence, cigarettes, uncomplicated; F12.10 Cannabis abuse, uncomplicated; Z90.49 Acquired absence of other specified parts of digestive tract; Z95.828 Presence of other vascular implants and grafts; Z80.0 Family history of malignant neoplasm of digestive organs; Z82.49 Family history of ischemic heart disease and other diseases of the circulatory system
CPT/HCPCS: 36415; 36416; 74177; 80053; 80061; 83036; 83690; 85025; 96361; 96374; 96375; J1200; J2270; J2405; J2765; J7050; Q9967; U0003; U0005